=== PATIENT | male | born 1990 | race Caucasian/White ===

== ENCOUNTER 2024-06-12 12:46 | Emergency (ER) | payer MEDICAID ==
[~2024-06-12] VITALS: Ht 167.6 cm; Wt 70.3 kg
[2024-06-12] MEDS ORDERED: ONDANSETRON HCL/PF 4 MG/2 ML VIAL ONE (13:10)
[2024-06-12] MEDS: IV NS 0.9% 1,000 ML BAG IV ONE ×2 (13:15→15:30)
[2024-06-12] MEDS: ONDANSETRON HCL/PF 4 MG/2 ML VIAL IVP ONE (13:16)
[2024-06-12 14:22] LABS: CALCIUM, SERUM 9.8 mg/dL (8.5-10.1); CARBON DIOXIDE 23 mmol/L (21-32); CHLORIDE 94 mmol/L (98-107); CREATININE 0.9 mg/dL (0.6-1.3); GLUCOSE 89 mg/dL (74-106); POTASSIUM 4.1 mmol/L (3.5-5.1); SODIUM SERUM 134 mmol/L (136-145); UREA NITROGEN, BLOOD 8 mg/dL (7-18)
[2024-06-12 14:23] LABS: SERUM AMMONIA 15 umol/L (11-32)
[2024-06-12 14:35] LABS: THYROID STIMULATING HORMONE 7.78 uIU/mL (0.358-3.74)
[2024-06-12 14:36] LABS: ALANINE AMINOTRANSFERASE 73 U/L (12-78); ALBUMIN 4.3 g/dL (3.4-5.0); ALCOHOL, BLOOD 69 mg/dL (0-10); ALKALINE PHOSPHATASE 82 U/L (46-116); ASPARTATE AMINOTRANSFERASE 75 U/L (15-37); BILIRUBIN,DIRECT 0.5 mg/dL (0.0-0.2); BILIRUBIN,TOTAL 1.3 mg/dL (0.2-1.0)
[2024-06-12 14:38] LABS: BASOPHILS # (AUTO) 0.1 K/uL (0.0-0.2); BASOPHILS % (AUTO) 0.8 % (0.0-2.0); EOSINOPHILS # (AUTO) 0.1 K/uL (0.0-0.7); EOSINOPHILS % (AUTO) 0.6 % (0.0-6.0); HEMATOCRIT 45 % (39-51); HEMOGLOBIN 15.2 g/dL (13.5-17.5); LYMPHOCYTES # (AUTO) 1.7 K/uL (0.8-4.8); LYMPHOCYTES % (AUTO) 15.3 % (20.0-44.0); MEAN CORPUSCULAR HEMOGLOBIN 35 PG (26.0-33.0); MEAN CORPUSCULAR HGB CONC 34 g/dl (31.0-36.0); MEAN CORPUSCULAR VOLUME 102 fL (80-96); MONOCYTES # (AUTO) 1.1 K/uL (0.1-1.30); MONOCYTES % (AUTO) 10.2 % (2.0-12.0); NEUTROPHILS # (AUTO) 8.1 K/uL (1.8-8.9); NEUTROPHILS % (AUTO) 73.1 % (43.0-81.0); PLATELET COUNT (AUTO) 323 K/uL (150-450); RED BLOOD CELL COUNT(AUTO) 4.36 MIL/uL (4.5-6.0); RED CELL DISTRIBUTION WIDTH 12.3 % (11.5-15.0); WHITE BLOOD COUNT (AUTO) 11.1 K/uL (4.3-11.0)
[2024-06-12 14:41] LABS: APPEARANCE,URINE CLEAR (CLEAR); BILIRUBIN,URINE NEGATIVE (NEGATIVE); BLOOD, URINE 1+ Ery/uL (NEGATIVE); COLOR,URINE YELLOW (YELLOW); KETONES,URINE 2+ mg/dL (NEGATIVE); LEUKOCYTE ESTERASE ,URINE NEGATIVE (NEGATIVE); NITRITE, URINE NEGATIVE (NEGATIVE); PROTEIN,URINE 2+ mg/dl (NEGATIVE); UGLUCOSE NEGATIVE (NEGATIVE); UROBILINOGEN,URINE 0.2 EU/dL (0.2)
[2024-06-12 14:44] LABS: ACETAMINOPHEN <10 ug/ml (10-30); SALICYLATE 0.9 mg/dL (2.8-20.0)
[2024-06-12 14:48] LABS: INR 1.03 (0.91-1.10); PARTIAL THROMBOPLASTIN TIME 24.9 SEC (24.3-34.3); PROTHROMBIN TIME 10.9 SECS (9.2-11.1)
[2024-06-12 14:52] LABS: LACTIC ACID 6.4 mmol/L (0.4-2.0)
[2024-06-12 14:56] LABS: BARBITURATE, URINE NEGATIVE (NEGATIVE); CANNABINOID, URINE NEGATIVE (NEGATIVE); OPIATE, URINE NEGATIVE (NEGATIVE); PHENCYCLIDINE SCREEN,URINE NEGATIVE (NEGATIVE)
[2024-06-12 14:59] LABS: AMPHETAMINE, URINE POSITIVE (NEGATIVE); BENZODIAZEPINE, URINE POSITIVE (NEGATIVE); COCCAINE, URINE POSITIVE (NEGATIVE)
[2024-06-12 15:15] LABS: ADD URINE CULTURE NO; BACTERIA,URINE Few /HPF (None Seen); MUCUS,URINE Rare /LPF (None Seen); SQUAMOUS EPITHELIAL CELL,UR 0-2 /HPF (None Seen)
[2024-06-12 15:16] LABS: WBC,URINE 0-2 /HPF (0-3)
[2024-06-12] MEDS ORDERED: PIPERACI/TAZO 3.375GM/D5W 50ML PB IV ONE (15:26)
[2024-06-12] MEDS: PIPERACILLIN /TAZOBACTAM 3.375 G in IV D5W 50 ML IV ONE (15:35)
[2024-06-12] MEDS ORDERED: ACETAMINOPHEN ES 500 MG TABLET ONE (15:56)
[2024-06-12] MEDS ORDERED: Magnesium 1GM/D5W 100ML PREMIX 100 ML IV ONE ×2 (15:58→16:55)
[2024-06-12] MEDS: Magnesium 1GM/D5W 100ML PREMIX 100 ML IV SCH (16:00)
[2024-06-12] MEDS: ACETAMINOPHEN ES 500 MG TABLET PO ONE (16:00)
[2024-06-12 17:11] LABS: MAGNESIUM 1.7 mg/dL (1.8-2.4); PHOSPHORUS 3.6 mg/dL (2.5-4.9)
[2024-06-12] MEDS ORDERED: LEVETIRACETAM (250 MG) 250 MG TABLET ONE (17:19)
[2024-06-12] MEDS: LEVETIRACETAM (250 MG) 250 MG TABLET PO ONE (17:28)
[2024-06-12 18:02] VITALS: BP 135/92; TEMP 97.9; O2SAT 97
== END 2024-06-12 17:45 | disposition left against medical advice (07) ==
LOC: ER 12:50
DX: G93.41 Metabolic encephalopathy (principal); E86.0 Dehydration; E87.1 Hypo-osmolality and hyponatremia; E87.20 Acidosis, unspecified; F10.129 Alcohol abuse with intoxication, unspecified; F14.129 Cocaine abuse with intoxication, unspecified; F15.129 Other stimulant abuse with intoxication, unspecified; Y90.3 Blood alcohol level of 60-79 mg/100 ml
CPT/HCPCS: 99291; 96365; 96361; 96366; 96368; 96375; 93005; 71045; 70450; 82140; 84145; 85025; 80048; 82550; 87040 ×2; 87086; 83605 ×2; 80076; 83735; 84100; 81001; 36415; 84443 ×2; 84484; 85730; 80143; 80320; 80307; J2405; J2543; J7030 ×2; A4223; J3475 ×2; G0480